=== PATIENT | female | born 1945 | race Caucasian/White ===

== ENCOUNTER 2024-03-05 07:50 | Emergency (ER) | payer MEDICARE, BC ==
[~2024-03-05] VITALS: Ht 157.5 cm; Wt 63.2 kg
[2024-03-05] MEDS ORDERED: ATORVASTATIN CA20 MG PO (08:03)
[2024-03-05] MEDS ORDERED: ondansetron HCL 4 MG/2 ML VIAL IV ONE (08:15)
[2024-03-05] MEDS ORDERED: diazePAM 10 MG/2 ML SYR IV ONE (08:15)
[2024-03-05] MEDS ORDERED: LIDOCAINE HCL 4% 1 EACH PATCH TD ONE (08:15)
[2024-03-05] MEDS ORDERED: HYDROmorphone HCL 1 MG/ML SYR IV ONE (08:15)
[2024-03-05 08:17] LABS: BASOPHILS 1.1 % (0-2); EOSINOPHILS 4.3 % (0-6); HEMATOCRIT 42.6 % (35.0-50.0); HEMOGLOBIN 14.3 g/dL (12.0-18.0); MCH 28.7 (27-36); MCHC 33.6 g/dl (30-36); MCV 85.5 fl (81-99); MONOCYTES 5.3 % (0-12); NEUTROPHILS 72.3 % (39-80); PLATELET COUNT 290 K/uL (140-440); RBC 4.98 M/ul (4.3-5.7)
[2024-03-05 08:28] LABS: ALBUMIN 3.9 g/dL (3.4-5.0); ALBUMIN/GLOBULIN RATIO 1.11 (1.1-2.4); ANION GAP 14.8 (7-21); BILIRUBIN, TOTAL 0.7 ng/dL (0.2-1.0); BUN/CREATININE RATIO 18.44 (6.0-28.6); CALCIUM 9.5 mg/dL (8.5-10.1); CREATININE, SERUM 1.03 mg/dL (0.55-1.02); POTASSIUM 3.8 mmol/L (3.5-5.1); PROTEIN, TOTAL 7.4 g/dL (6.4-8.2)
[2024-03-05] MEDS ORDERED: diphenhydrAMINE HCL 50 MG/ML VIAL IV ONE (08:45)
[2024-03-05] MEDS ORDERED: CYCLOBENZAPRINE10 MG PO (10:13)
[2024-03-05] MEDS ORDERED: LIDODERM1 EACH TOP (10:13)
[2024-03-05] MEDS ORDERED: PERCOCET 5-3251 EACH PO (10:13)
[2024-03-05 10:28] VITALS: BP 131/63
[2024-03-05] MEDS ORDERED: LIDOCAINE PATCH REMOVAL 1 EA TD SCH (21:00)
== END 2024-03-05 10:28 | disposition home or self-care (01) ==
LOC: ED 07:50
PROVIDERS: Emergency Medicine
DX: M54.2 Cervicalgia (principal); M62.838 Other muscle spasm; Z88.5 Allergy status to narcotic agent; Z88.6 Allergy status to analgesic agent
CPT/HCPCS: 36415; 70491; 80053; 85025; A9270; J1170; J1200; J2405; J3360; Q9967